=== PATIENT | female | born 1990 | race Caucasian/White ===

== ENCOUNTER 2017-01-07 07:57 | Emergency (ER) | payer BC ==
[~2017-01-07] VITALS: Ht 175.3 cm; Wt 67.2 kg
[~2017-01-07 07:57] MED LIST: BCPILLS PO; FERR1TAB61 PO
[2017-01-07 08:08] VITALS: TEMP 37.1; Ht 175.3 cm; Wt 67.2 kg
[2017-01-07] MEDS ORDERED: SODIUM CHLORIDE 0.9% 1000ML 1,000 ML IV STA (08:39)
[2017-01-07 09:17] LABS: PREG INTERNAL NEGATIVE QC NEG CLEAR BACKGROUND; PREG INTERNAL POSITIVE QC POS CONTROL LINE; URINE APPEARANCE TURBID (CLEAR); URINE BILIRUBIN NEG (NEG); URINE COLOR DK YELLOW; URINE EPITHELIAL CELL AUTO >30 /lpf (0-5); URINE NITRITE POS (NEG); URINE SPECIFIC GRAVITY 1.021 (1.000-1.030); UROBILINOGEN NEG (NEG); ZZUR CULT IF INDIC CLEAN CATCH YES
[2017-01-07] MEDS ORDERED: TAMS0.4C38 PO (09:19)
[2017-01-07 09:31] LABS: MANUAL MICROSCOPIC REQUIRED? NO; REVIEW REQ? YES
[2017-01-07 10:07] LABS: BASO % 0.1 %; BASO ABS # 0.01 K/uL (0-0.2); COMPLETE YES; EOS % 0.1 %; HEMATOCRIT 40.5 % (37-47); IG% 0.2 %; LYMPH % 5.5 %; MEAN CORPUSCULAR HEMOGLOBIN 30.7 pg (25-34); MEAN CORPUSCULAR HGB CONC 34.1 g/dl (32-36); MEAN PLATELET VOLUME 11.1 fL (7.4-10.4); MONO % 5.5 %; NEUT % 88.6 %; PLATELET COUNT 157 K/uL (130-400); WHITE BLOOD COUNT 10.91 K/uL (4.8-10.8)
[2017-01-07] MEDS ORDERED: ONDANSETRON INJ 2 MG/ML 2 ML VIAL IV STA (10:13)
[2017-01-07 10:28] LABS: BUN/CREATININE RATIO 16.2 (10-20); CALCIUM 9.2 mg/dl (8.5-10.1); CREATININE 0.88 mg/dl (0.60-1.20); POTASSIUM 4.3 mmol/L (3.5-5.1)
[2017-01-07 10:39] LABS: THYROID STIMULATING HORMONE 1.52 uIu/ml (0.300-4.500)
[2017-01-07] MEDS ORDERED: ACETAMINOPHEN 500 MG TAB PO STA (10:49)
[2017-01-07 10:58] VITALS: BP 119/67; PULSE 92; O2SAT 100
[2017-01-07] MEDS ORDERED: NITR-5 PO (11:09)
[2017-01-07] MEDS ORDERED: ONDA4TAB10 SL (11:09)
--- NOTE | 2017-01-07 16:53 | EMERGENCY ROOM VISIT NOTE ---
History First contact with patient: 08:31 Chief Complaint: SYNCOPE (NEAR SYNCOPE) Stated Complaint: PASSED OUT TWICE, N, BLOODY LIPS/GUM, UTI SX Nursing Triage Summary: Patient c/o passing out twice today around 0700. Pt states she was having BM, got nauseous and dizzy and leaned forward and must have passed out and hit head on side of bathtub. Then tried to get up and passed out again. C/O split lip and forehead pain and nose pain, unsure if she broke her nose. History of Present Illness The patient is a 26 year old female who presents to the Emergency Room for evaluation of injuries after passing out in her bathroom this morning. The patient reports she was having a bowel movement when she became hot, flushed, nauseous and dizzy. When she tried to stand up, she reports passing out, and hitting her head on the side of the bathtub. When she tried to get up again, she believes that she passed out yet again. The patient currently complains of a small cut on her upper lip, as well as right forehead and nose pain. She denies any epistaxis, blurred vision or neck pain. She does complain of a mild right frontal headache and persistent nausea. She denies any other injuries from her fall except as previously described, and rates her discomfort a 5 out of 10. The patient reports that she also noticed some urinary discomfort since yesterday morning. She has not noticed any blood in her urine. She does report a prior history of kidney stones, but reports that this felt different. Review of Systems HEENT: Denies visual problems, hearing loss, tinnitus. Denies difficulty swallowing or oral lesions. PULMONARY: Denies cough, shortness of breath, sputum production or hemoptysis. CARDIOVASCULAR: Denies chest pain, palpitations, dyspnea on exertion, orthopnea or peripheral edema. GASTROINTESTINAL: Denies diarrhea, constipation or significant abdominal pain. GENITOURINARY: Reports recent dysuria, frequency and urgency. NEUROLOGIC: Denies history of epilepsy, CVA, TIA or chronic headaches. MUSCULOSKELETAL: Denies history of joint tenderness/swelling. SKIN: Denies rashes or lesions. PSYCHIATRIC: Denies history of depression or mental illness. ENDOCRINE: Denies history of diabetes thyroid disorders. Past Medical/Surgical History Medical Problems: (1) Calculus Of Kidney (2) Kidney stones Surgical Problems: (1) No history of previous surgery Family History FH: diabetes mellitus FH: kidney disease Social History Smoking Status: Never Smoker Alcohol Use: occasionally Marital Status: single Occupation Status: [employer] student Current/Historical Medications Scheduled Nitrofurantoin Monohyd Macrocr (Macrobid), 100 MG PO BID Ondasetron Odt (Zofran Odt), 4 MG SL Q6H Tamsulosin Hcl (Flomax), 0.4 MG PO DAILY Allergies Coded Allergies: Morphine (Unverified Allergy, Mild, ITCHY/TURN RED, 01/07/17) Physical Exam Vital Signs Date Time Temp Pulse Resp B/P Pulse Ox O2 Delivery O2 Flow Rate FiO2 01/07/17 10:58 92 18 119/67 100 Room Air 01/07/17 08:59 90 102/59 98 108/69 119 94/60 01/07/17 08:08 37.1 120 18 117/61 97 Room Air Pain Rating (0-10): 0 Physical Exam CONSTITUTIONAL: Healthy and well nourished. Alert and oriented X 3 with positive affect. GCS 15. HEENT: Examination shows minimal right forehead edema without overriding ecchymosis or hematoma formation. The patient has minimal tenderness to palpation over the bridge of the nose. No epistaxis noted. Pupils equal, round and reactive. No subconjunctival hemorrhage, hemotympanum, raccoon's eyes or Morfin sign. NECK: Full active range of motion without discomfort. RESPIRATORY: Clear to auscultation bilaterally with no wheezing, crackles, rhonchi or stridor. CARDIOVASCULAR: Regular rate and rhythm with no murmurs, rubs or gallops. GASTROINTESTINAL: Bowel sounds present in all quadrants. Soft and nontender to palpation without rigidity, guarding or rebound. Negative CVA tenderness. Negative McBurney's point tenderness. MUSCULOSKELETAL: Full range of motion of all joints without discomfort. INTEGUMENTARY: No rash or other significant dermatologic conditions noted. HEMATOLOGIC: No ecchymosis or petechiae noted. NEUROLOGIC: No focal neurologic deficits noted. Medical Decision & Procedures ER Provider Diagnostic Interpretation: My interpretation of an ECG shows a normal sinus rhythm of [address] elevation or other conduction abnormalities. Laboratory Results 01/07/17 10:00 Red Blood Count 4.50, Mean Corpuscular Volume 90.0, Mean Corpuscular Hemoglobin 30.7, Mean Corpuscular Hemoglobin Concent 34.1, Mean Platelet Volume 11.1, Neutrophils (%) (Auto) 88.6, Lymphocytes (%) (Auto) 5.5, Monocytes (%) (Auto) 5.5, Eosinophils (%) (Auto) 0.1, Basophils (%) (Auto) 0.1, Neutrophils # (Auto) 9.67, Lymphocytes # (Auto) 0.60, Monocytes # (Auto) 0.60, Eosinophils # (Auto) 0.01, Basophils # (Auto) 0.01 01/07/17 10:00 Test 01/07/17 08:55 01/07/17 10:00 Urine Color DK YELLOW Urine Appearance TURBID (CLEAR) Urine pH 5.0 (4.5-7.5) Urine Specific [place] 1.021 (1.000-1.030) Urine Protein 1+ (NEG) Urine Glucose (UA) NEG (NEG) Urine Ketones 1+ (NEG) Urine Occult Blood 3+ (NEG) Urine Nitrite POS (NEG) Urine Bilirubin NEG (NEG) Urine Urobilinogen NEG (NEG) Urine Leukocyte Esterase LARGE (NEG) Urine WBC (Auto) >30 /hpf (0-5) Urine RBC (Auto) 10-30 /hpf (0-4) Urine Hyaline Casts (Auto) 5-10 /lpf (0-5) Urine Epithelial Cells (Auto) >30 /lpf (0-5) Urine Bacteria (Auto) 4+ (NEG) Urine Yeast (Auto) (NONE PRSENT) Urine Test NEG (NEG) White Blood Count 10.91 K/uL (4.8-10.8) Red Blood Count 4.50 M/uL (4.2-5.4) Hemoglobin 13.8 g/dL (12.0-16.0) Hematocrit 40.5 % (37-47) Mean Corpuscular Volume 90.0 fL (80-100) Mean Corpuscular Hemoglobin 30.7 pg (25-34) Mean Corpuscular Hemoglobin Concent 34.1 g/dl (32-36) Platelet Count 157 K/uL (130-400) Mean Platelet Volume 11.1 fL (7.4-10.4) Neutrophils (%) (Auto) 88.6 % Lymphocytes (%) (Auto) 5.5 % Monocytes (%) (Auto) 5.5 % Eosinophils (%) (Auto) 0.1 % Basophils (%) (Auto) 0.1 % Neutrophils # (Auto) 9.67 K/uL (1.4-6.5) Lymphocytes # (Auto) 0.60 K/uL (1.2-3.4) Monocytes # (Auto) 0.60 K/uL (0.11-0.59) Eosinophils # (Auto) 0.01 K/uL (0-0.5) Basophils # (Auto) 0.01 K/uL (0-0.2) RDW Standard Deviation 40.3 fL (36.4-46.3) RDW Coefficient of Variation 12.3 % (11.5-14.5) Immature Granulocyte % (Auto) 0.2 % Immature Granulocyte # (Auto) 0.02 K/uL (0.00-0.02) Anion Gap 6.0 mmol/L (3-11) Est Creatinine Clear Calc Drug Dose 101.3 ml/min Estimated GFR () 105.1 Estimated GFR (Non- 90.7 BUN/Creatinine Ratio 16.2 (10-20) Calcium Level 9.2 mg/dl (8.5-10.1) Thyroid Stimulating Hormone (TSH) 1.520 uIu/ml (0.300-4.500) Medications Administered Medications (Trade) Dose Ordered Sig/Gokul Route Start Time Stop Time Status Last Admin Dose Admin Sodium Chloride (Nss 1000ml) 1,000 ml @ 999 mls/hr Q1H1M STAT IV 01/07/17 08:39 01/07/17 09:39 DC 01/07/17 10:26 999 MLS/HR Ondansetron HCl (Zofran Inj) 4 mg NOW STAT IV 01/07/17 10:13 01/07/17 10:14 DC 01/07/17 10:25 4 MG Acetaminophen (Tylenol Tab) 1,000 mg NOW STAT PO 01/07/17 10:49 01/07/17 10:50 DC 01/07/17 11:08 1,000 MG ED Course Patient history and physical exam were performed. Nurse's notes were reviewed. Vital signs were reviewed and were normal. IV access was established, and labs were drawn. The patient was hydrated with a liter normal saline. The patient initially refused any medications, but was eventually administered IV Zofran for mild nausea, and Tylenol 1000 mg orally for pain. Labs were reviewed and normal. ECG was also performed, showing a normal sinus rhythm of 86 bpm. The patient refused CT scanning of the head or facial bones. She would prefer to watch her symptoms, and will return for any worsening condition. The patient was advised that she does have a concussion. She was instructed to avoid strenuous activities until all symptoms resolve. She was encouraged to intermittently apply ice to the forehead and nose as needed. Tylenol as needed for pain. The patient refused any prescription analgesics. She did accept a prescription for Zofran ODT as needed for nausea. The patient was instructed to return to the emergency department immediately for any progressively worsening symptoms. Otherwise she may follow-up with her family doctor or [facility] as needed for further management. The patient was happy with plan of care, voiced understanding of all discharge instructions, and rated her discomfort a 3 out of 10 at the conclusion of my exam. Medical Decision Impression Primary Impression: Concussion Additional Impressions: Syncope, vasovagal UTI (urinary tract infection) Departure Information Dispostion Home / Self-Care Condition GOOD Prescriptions Nitrofurantoin Monohyd Macrocr (Macrobid) 100 Mg Cap 100 MG PO BID for 5 Days, #10 CAP Prov: Joaquim Wren PA 01/07/17 Ondasetron Odt (ZOFRAN ODT) 4 Mg Tab 4 MG SL Q6H for Nausea, #10 TAB Prov: Joaquim Wren PA 01/07/17 Forms HOME CARE DOCUMENTATION FORM, IMPORTANT VISIT INFORMATION Patient Instructions My [facility] Additional Instructions Complete all Macrobid antibiotics as prescribed for UTI. Rest and remain well-hydrated. Read concussion handout. Tylenol 1000 mg every 6-8 hours as needed for pain. Zofran ODT if needed for nausea. Intermittently apply ice to the nose and forehead for swelling and pain. Follow-up with [facility] or your family doctor as needed for further management. Return to the emergency department for progressively worsening headache, vomiting, coordination problems or other concerning neurologic symptoms. Problem Qualifiers
--- NOTE | 2017-01-09 10:59 | Pharmacy Progress Note ---
ED Pharmacist Culture FollowUp Date of Service: Jan 09, 2017. Patient was sent home with a prescription for Macrobid 100mg PO BID x 5 days, which should cover the E coli growing from the patient's URINE culture. No action required.
== END 2017-01-07 11:40 | disposition home or self-care (01) ==
LOC: C.EDB 08:01 → C.EDA 11:40
DX: S06.0X9A Concussion with loss of consciousness of unspecified duration, initial encounter (principal); R55 Syncope and collapse; N39.0 Urinary tract infection, site not specified; R11.0 Nausea; Z79.899 Other long term (current) drug therapy; Z87.442 Personal history of urinary calculi; Z88.5 Allergy status to narcotic agent; Z83.3 Family history of diabetes mellitus; Z84.1 Family history of disorders of kidney and ureter; W18.12XA Fall from or off toilet with subsequent striking against object, initial encounter

== ENCOUNTER → 2017-04-13 | Outpatient (CLI) | payer BC ==
[~2017-04-13] MED LIST changes: -BCPILLS PO; -FERR1TAB61 PO; +ONDA4TAB10 SL; +TAMS0.4C38 PO
== END | disposition home or self-care (01) ==
LOC: C.PAPS 08:48
PROVIDERS: ATTEND Physician Assistant
DX: Z01.419 Encounter for gynecological examination (general) (routine) without abnormal findings (principal)

== ENCOUNTER → 2017-05-22 | Outpatient (CLI) | payer BC ==
[2017-05-22 14:43] LABS: BASO % 0.6 %; BASO ABS # 0.03 K/uL (0-0.2); COMPLETE YES; EOS % 0.4 %; HEMATOCRIT 36.9 % (37-47); LYMPH % 29.4 %; LYMPH ABS # 1.45 K/uL (1.2-3.4); MEAN CELL VOLUME 90.4 fL (80-100); MEAN CORPUSCULAR HEMOGLOBIN 30.4 pg (25-34); MEAN CORPUSCULAR HGB CONC 33.6 g/dl (32-36); MEAN PLATELET VOLUME 11.7 fL (7.4-10.4); MONO % 5.3 %; NEUT % 64.3 %; PLATELET COUNT 147 K/uL (130-400); RED BLOOD COUNT 4.08 M/uL (4.2-5.4); WHITE BLOOD COUNT 4.94 K/uL (4.8-10.8)
[2017-05-22 15:16] LABS: ALT/SGPT 18 U/L (12-78); BLOOD UREA NITROGEN 13 mg/dl (7-18); BUN/CREATININE RATIO 13.4 (10-20); CALCIUM 9.4 mg/dl (8.5-10.1); CARBON DIOXIDE 26 mmol/L (21-32); CHLORIDE 107 mmol/L (98-107); CREATININE 0.97 mg/dl (0.60-1.20); GLUCOSE 85 mg/dl (70-99); POTASSIUM 4.1 mmol/L (3.5-5.1); SODIUM 140 mmol/L (136-145)
[2017-05-22 15:19] LABS: ALB/GLOB RATIO 1.3 (0.9-2); ALKALINE PHOSPHATASE 51 U/L (45-117); AST/SGOT 12 U/L (15-37)
[2017-05-28 05:33] LABS: GLIADIN DEAMIDATED IgA AB 7 UNITS (<20); GLIADIN DEAMIDATED IgG AB 3 UNITS (<20); RETICULIN IgA AB Negative (Negative)
== END | disposition home or self-care (01) ==
LOC: C.LAB1850 13:50
PROVIDERS: ATTEND Physician Assistant
DX: K92.1 Melena (principal)

== ENCOUNTER 2018-01-05 12:44 | Emergency (ER) | payer BC, OTHER ==
[~2018-01-05] VITALS: Ht 175.3 cm; Wt 63.2 kg
[~2018-01-05 12:44] MED LIST changes: -ONDA4TAB10 SL
[2018-01-05 12:48] VITALS: TEMP 36.7; Ht 175.3 cm; Wt 63.2 kg
[2018-01-05] MEDS ORDERED: NORE5TAB5 PO (13:20)
[2018-01-05] MEDS ORDERED: HYOS1TAB PO (13:20)
[2018-01-05 14:07] LABS: BASO % 0.9 %; BASO ABS # 0.04 K/uL (0-0.2); EOS % 0.4 %; EOS ABS # 0.02 K/uL (0-0.5); HEMATOCRIT 38.2 % (37-47); HEMOGLOBIN 12.9 g/dL (12.0-16.0); MEAN CELL VOLUME 90.7 fL (80-100); MEAN CORPUSCULAR HEMOGLOBIN 30.6 pg (25-34); MEAN CORPUSCULAR HGB CONC 33.8 g/dl (32-36); MEAN PLATELET VOLUME 10.9 fL (7.4-10.4); MONO ABS # 0.41 K/uL (0.11-0.59); NEUT % 56.7 %; NEUT ABS # 2.58 K/uL (1.4-6.5); PLATELET COUNT 160 K/uL (130-400); RED CELL DISTRIBUTION WIDTH CV 12.3 % (11.5-14.5); RED CELL DISTRIBUTION WIDTH SD 40.9 fL (36.4-46.3); WHITE BLOOD COUNT 4.55 K/uL (4.8-10.8)
--- NOTE | 2018-01-05 14:17 | EMERGENCY ROOM VISIT NOTE ---
History First contact with patient: 12:57 Chief Complaint: ABDOMINAL PAIN Stated Complaint: WORSENING ABD PAIN FOR ABOUT 3 HOURS Nursing Triage Summary: abdominal pain worsening over the past couple of hrs. slight nasuea History of Present Illness The patient is a 27 year old female who presents to the Emergency Room with complaints of pelvic pain which began approximately 9 or 10:00 this morning. The patient states as the day has been going on, the pain has been getting worse and seems to be spreading around towards the back. The patient describes pain as sharp, and states that is wrapping around in her pelvis. She states she believes the pain is worse on the left, but feels that bilaterally. The pain is worse with bending or moving, and seems to improve with sitting or standing still. The patient has taken no medications for her pain. She does have a history of kidney stones and ovarian cyst, but states this pain is not exactly like either of those things. The patient did eat since she has experienced the pain, and states that did not change the pain. She reports some minimal nausea and dizziness which was fleeting, but denies any consistent other symptoms. Patient denies any diarrhea, constipation, vomiting, chest pain , difficulty breathing, upper respiratory infection symptoms, cough, fever, weakness, numbness or tingling, or specific back pain. She does have a history of irritable bowel syndrome, but states her symptoms have been well controlled. The patient's last menstrual period was 3-1/2 weeks ago. The patient denies any abnormal vaginal bleeding, vaginal discharge, hematuria, urinary frequency or hesitancy, dysuria, or other concerning symptoms. Review of Systems A complete 10 point review of systems was reviewed with the patient with pertinent positives and negatives as per history of present illness. All else were negative. Past Medical/Surgical History Medical Problems: (1) Calculus Of Kidney (2) Kidney stones Surgical Problems: (1) No history of previous surgery Family History FH: diabetes mellitus FH: kidney disease Social History Smoking Status: Never Smoker Alcohol Use: occasionally Marital Status: single Occupation Status: [employer] student Current/Historical Medications Scheduled Hyoscyamine Sulfate (Levsin), 0.125 MG PO DAILY Norethindrone (Aygestin), 5 MG PO DAILY Physical Exam Vital Signs Date Time Temp Pulse Resp B/P (MAP) Pulse Ox O2 Delivery O2 Flow Rate FiO2 01/05/18 15:28 59 16 118/67 100 Room Air 2/13/18 12:48 36.7 98 18 121/84 99 Room Air Physical Exam VITALS: Vitals are noted on the nurse's note and reviewed by myself. Vital signs stable. GENERAL: This is a 27-year-old female, in no acute distress, nondiaphoretic, well-developed well-nourished. SKIN: The skin was without rashes, erythema, edema, or bruising. There is no tenting of the skin. Capillary reflex less than 2 seconds. HEAD: Normocephalic atraumatic. EARS: External auditory canals clear, tympanic membranes pearly [place]k without erythema or effusion bilaterally. EYES: Pupils equal round and reactive to light and accommodation. Conjunctivae without injection, sclerae without icterus. Extraocular movements intact. NOSE: Patent, turbinates without inflammation or discharge. No sinus tenderness. MOUTH: Mucous membranes moist. Tonsils are not enlarged. Pharynx without erythema or exudate. Uvula midline. Airway patent. Tongue does not deviate. NECK: Supple without nuchal rigidity. No lymphadenopathy. No thyromegaly. Cervical spine is nontender. No JVD. HEART: Regular rate and rhythm without murmurs gallops or rubs. LUNGS: Clear to auscultation bilaterally without wheezes, rales or rhonchi. No dullness to percussion. No retractions or accessory muscle use. ABDOMEN: Positive bowel sounds x 4. Normal tympanic percussion. Mild suprapubic tenderness. The abdomen was otherwise soft, nontender, without masses or organomegaly. Farrell sign negative. No guarding or rebound tenderness. MUSCULOSKELETAL: No muscle atrophy, erythema, or edema noted. Full range of motion without joint tenderness in all extremities. No tenderness to palpation. Normal gait. Strength 5/5 throughout. NEURO: Patient was alert and oriented to person place and time. Normal sensation to light and sharp touch. Deep tendon reflexes 2+ throughout. No focal neurological deficits. Medical Decision & Procedures ER Provider Diagnostic Interpretation: PELVIC COMPLETE NON OB CLINICAL HISTORY: pelvic pain, L>R PAIN COMPARISON STUDY: None FINDINGS: The uterus measured 8.2 cm. The endometrial stripe measured 3 mm. The right ovary measured 4.0 x 2.7 cm. Normal vascular flow. The left ovary measured 4.0 x 2.1 cm. 1.5 cm cyst. Normal vascular flow. There is no ultrasonographic evidence of ovarian torsion. It should be noted that ovarian torsion can be present with normal Doppler ultrasonographic findings. There was no evidence of pathologic free pelvic fluid. IMPRESSION: 1.5 cm left ovarian cyst. Otherwise negative pelvic ultrasound Laboratory Results 01/05/18 13:50 Red Blood Count 4.21, Mean Corpuscular Volume 90.7, Mean Corpuscular Hemoglobin 30.6, Mean Corpuscular Hemoglobin Concent 33.8, Mean Platelet Volume 10.9, Neutrophils (%) (Auto) 56.7, Lymphocytes (%) (Auto) 33.0, Monocytes (%) (Auto) 9.0, Eosinophils (%) (Auto) 0.4, Basophils (%) (Auto) 0.9, Neutrophils # (Auto) 2.58, Lymphocytes # (Auto) 1.50, Monocytes # (Auto) 0.41, Eosinophils # (Auto) 0.02, Basophils # (Auto) 0.04 01/05/18 13:50 Test 01/05/18 13:20 01/05/18 13:50 Urine Color YELLOW Urine Appearance CLEAR (CLEAR) Urine pH 5.5 (4.5-7.5) Urine Specific [place] 1.027 (1.000-1.030) Urine Protein 2+ (NEG) Urine Glucose (UA) NEG (NEG) Urine Ketones NEG (NEG) Urine Occult Blood NEG (NEG) Urine Nitrite NEG (NEG) Urine Bilirubin NEG (NEG) Urine Urobilinogen NEG (NEG) Urine Leukocyte Esterase NEG (NEG) Urine WBC (Auto) 1-5 /hpf (0-5) Urine RBC (Auto) 0-4 /hpf (0-4) Urine Hyaline Casts (Auto) 1-5 /lpf (0-5) Urine Epithelial Cells (Auto) 20-30 /lpf (0-5) Urine Bacteria (Auto) NEG (NEG) White Blood Count 4.55 K/uL (4.8-10.8) Red Blood Count 4.21 M/uL (4.2-5.4) Hemoglobin 12.9 g/dL (12.0-16.0) Hematocrit 38.2 % (37-47) Mean Corpuscular Volume 90.7 fL (80-100) Mean Corpuscular Hemoglobin 30.6 pg (25-34) Mean Corpuscular Hemoglobin Concent 33.8 g/dl (32-36) Platelet Count 160 K/uL (130-400) Mean Platelet Volume 10.9 fL (7.4-10.4) Neutrophils (%) (Auto) 56.7 % Lymphocytes (%) (Auto) 33.0 % Monocytes (%) (Auto) 9.0 % Eosinophils (%) (Auto) 0.4 % Basophils (%) (Auto) 0.9 % Neutrophils # (Auto) 2.58 K/uL (1.4-6.5) Lymphocytes # (Auto) 1.50 K/uL (1.2-3.4) Monocytes # (Auto) 0.41 K/uL (0.11-0.59) Eosinophils # (Auto) 0.02 K/uL (0-0.5) Basophils # (Auto) 0.04 K/uL (0-0.2) RDW Standard Deviation 40.9 fL (36.4-46.3) RDW Coefficient of Variation 12.3 % (11.5-14.5) Immature Granulocyte % (Auto) 0.0 % Immature Granulocyte # (Auto) 0.00 K/uL (0.00-0.02) Anion Gap 8.0 mmol/L (3-11) Est Creatinine Clear Calc Drug Dose 105.4 ml/min Estimated GFR () 117.1 Estimated GFR (Non- 101.0 BUN/Creatinine Ratio 16.2 (10-20) Calcium Level 8.9 mg/dl (8.5-10.1) Total Bilirubin 0.6 mg/dl (0.2-1) Aspartate Amino Transf (AST/SGOT) 13 U/L (15-37) Alanine Aminotransferase (ALT/SGPT) 16 U/L (12-78) Alkaline Phosphatase 56 U/L (45-117) Total Protein 7.6 gm/dl (6.4-8.2) Albumin 4.3 gm/dl (3.4-5.0) Globulin 3.3 gm/dl (2.5-4.0) Albumin/Globulin Ratio 1.3 (0.9-2) ED Course The patient was seen and evaluated by. Urine dipstick obtained. IV access obtained, labs drawn. Ultrasound ordered and performed. I reviewed all results and discuss them with the patient at bedside. Discharge instructions reviewed, the patient was discharged home in good condition. Medical Decision This is a 27-year-old female patient presents to the emergency department today complaining of suprapubic/pelvic pain. The patient was sent here from [facility], is that they did not have imaging modalities to assess the patient's discomfort. The patient's urinalysis here in the emergency department was negative for blood, and did not show obvious signs of urinary tract infection. My suspicion for nephrolithiasis or infection is very low based on these findings. The patient will be evaluated for gynecologic cause of her pain with ultrasound and basic labs. Her urine test was negative. CBC was without leukocytosis, anemia, thrombocytopenia. CMP did not show any significant renal, hepatic, electrolyte abnormalities. The patient's ultrasound was significant for a 1-1/2 cm cyst on the left ovary. I do suspect that this is causing the patient's pain, she has had similar pain in the past related to ovarian cysts. The patient was offered pain medication throughout her visit, and declined. I discussed with her proper management and outpatient , and encouraged follow-up with gynecology. All questions were answered to patient's satisfaction. Etiologies such as PID, endometriosis, STI, ovarian cyst, ovarian torsion, , appendicitis, diverticulitis, obstruction, inflammatory bowel disease, renal colic, PUD, biliary pathology, pancreatitis, mesenteric ischemia , aortic pathology, infections, genitourinary, UTI, perforated viscus, as well as others were entertained. Medication Reconcilliation Current Medication List: was personally reviewed by me Blood Pressure Screening Patient's blood pressure: Normal blood pressure Impression Primary Impression: Left ovarian cyst Departure Information Dispostion Home / Self-Care Condition GOOD Referrals Julisa Gomes PA-C (PCP) Patient Instructions ED Cyst Ovarian, My [facility] Additional Instructions You have been treated in the Emergency Department your Abdominal Pain. Laboratory results and imaging studies have ruled out any emergent causes for your abdominal pain which would warrant admission or surgery. As discussed, ultrasound did show a 1.5 cm cyst on the left ovary. This does not appear to be causing any torsion. I suspect this is the cause of your symptoms. For pain control, you can use the following [id number] medicines (if >12 yo): Ibuprofen(Motrin, Advil) may be used for fever or pain. Use 600mg every six hours as needed. Take with food. Avoid using more than 2400mg in a 24 hour period. Do not use 2400mg per day for more than three consecutive days without physician direction. Prolonged inappropriate use can lead to stomach upset or ulcers. (AND/OR) Acetaminophen(Tylenol) may be used for fever or pain. Use 1000mg every six hours as needed. Avoid using more than 3000mg in a 24 hour period. Drink plenty of water and stay well hydrated. As with any trip to the Emergency Department, you should follow-up with your Primary Care Provider/S from today's visit. Return to the emergency department if your symptoms persist despite treatment plan outlined above or if the following symptoms occur: increased fevers, chills , worsening nausea/vomiting, worsening abdominal pain, or pain which seems to settle in the right lower quadrant, blood in your stool or urine.
[2018-01-05 14:21] LABS: ALBUMIN 4.3 gm/dl (3.4-5.0); CALCIUM 8.9 mg/dl (8.5-10.1); CREATININE 0.8 mg/dl (0.60-1.20); POTASSIUM 3.7 mmol/L (3.5-5.1)
[2018-01-05 14:24] LABS: TOTAL PROTEIN 7.6 gm/dl (6.4-8.2)
--- NOTE | 2018-01-05 15:08 | DIAGNOSTIC IMAGING REPORT ---
PELVIC COMPLETE NON OB CLINICAL HISTORY: pelvic pain, L>R PAIN COMPARISON STUDY: None FINDINGS: The uterus measured 8.2 cm. The endometrial stripe measured 3 mm. The right ovary measured 4.0 x 2.7 cm. Normal vascular flow. The left ovary measured 4.0 x 2.1 cm. 1.5 cm cyst. Normal vascular flow. There is no ultrasonographic evidence of ovarian torsion. It should be noted that ovarian torsion can be present with normal Doppler ultrasonographic findings. There was no evidence of pathologic free pelvic fluid. IMPRESSION: 1.5 cm left ovarian cyst. Otherwise negative pelvic ultrasound The above report was generated using voice recognition software. It may contain grammatical, syntax or spelling errors. Electronically signed by: Donnie Morillo M.D. 01/05/2018 3:07 PM Dictated Date/Time: 01/05/2018 3:04 PM
[2018-01-05 15:31] VITALS: BP 118/67; PULSE 59; O2SAT 100
== END 2018-01-05 15:31 | disposition home or self-care (01) ==
LOC: C.EDB 12:45
DX: N83.202 Unspecified ovarian cyst, left side (principal); Z87.442 Personal history of urinary calculi; Z83.3 Family history of diabetes mellitus; Z84.1 Family history of disorders of kidney and ureter; Z79.899 Other long term (current) drug therapy